=== PATIENT | male | born 1935 | race Caucasian/White ===

== ENCOUNTER 2018-05-05 21:12 | Inpatient (IN) | payer OTHER ==
[2018-05-05] MEDS ORDERED: ONDANSETRON 4 MG INJ IV (23:00)
[2018-05-05] MEDS ORDERED: ALBUTEROL/IPRATROPIUM (NEB) 3 ML AMP HHN (23:00)
[2018-05-05] MEDS: DEXTROSE 5%-0.45% NACL 1,000 ML IV (23:15)
[2018-05-05] MEDS ORDERED: DEXTROSE 50% 50 ML SYRINGE IV ×2 (23:30)
[2018-05-05] MEDS ORDERED: GLUCOSE GEL 15 GRAM TUBE PO ×2 (23:30)
[2018-05-05] MEDS ORDERED: GLUCOSE GEL 15 GRAM TUBE BUCCAL (23:30)
[2018-05-05] MEDS ORDERED: GLUCAGON 1 MG INJ IM (23:30)
[2018-05-06] MEDS: ACETAMINOPHEN 325 MG TAB PO (05:11)
[2018-05-06] MEDS: INSULIN ASPART [NOVOLOG] 3 ML PEN SC ×6 (05:39→20:38)
[2018-05-06 05:58] LABS: ADD MAN DIFF? NO
[2018-05-06 06:02] LABS: BASOPHILS % 0.5 % (0.0-2.0); EOSINOPHILS # 0.7 10^3/ul (0.0-0.5); HEMATOCRIT 37.4 % (42.0-52.0); HEMOGLOBIN 12.6 g/dl (14.0-18.0); LYMPHOCYTES # 0.7 10^3/ul (0.8-2.9); LYMPHOCYTES % 11.5 % (15.0-51.0); MEAN CORPUSCULAR HEMOGLOBIN 29.1 pg (29.0-33.0); MEAN CORPUSCULAR HGB CONC 33.7 g/dl (32.0-37.0); MEAN CORPUSCULAR VOLUME 86.4 fl (82.0-101.0); MEAN PLATELET VOLUME 9.2 fl (7.4-10.4); MONOCYTE # 0.6 10^3/ul (0.3-0.9); MONOCYTES % 10.7 % (0.0-11.0); NEUTROPHIL # 3.9 10^3/ul (1.6-7.5); PLATELET COUNT 304 10^3/UL (140-415); RED BLOOD COUNT 4.33 10^6/ul (4.70-6.10)
[2018-05-06 06:02] LABS: WHITE BLOOD COUNT 5.9 10^3/ul (4.8-10.8)
[2018-05-06 06:34] LABS: ALANINE AMINOTRANSFERASE 24 IU/L (13-69); ALBUMIN 2.8 g/dl (3.3-4.9); ALBUMIN/GLOBULIN RATIO 0.96; ALKALINE PHOSPHATASE 112 IU/L (42-121); ANION GAP 4 (8-16); ASPARTATE AMINO TRANSFERASE 45 IU/L (15-46); BILIRUBIN,INDIRECT 0.5 mg/dl (0-1.1); BILIRUBIN,TOTAL 0.5 mg/dl (0.2-1.3); BLOOD UREA NITROGEN 12 mg/dl (7-20); CALCIUM 8.3 mg/dl (8.4-10.2); CARBON DIOXIDE 27 mmol/L (21-31); CHLORIDE 106 mmol/L (97-110); CHOL/HDL RATIO 3.6 RATIO; CHOLESTEROL 132 mg/dl (100-200); CREATININE 0.71 mg/dl (0.61-1.24); GLUCOSE 100 mg/dl (70-220); HDL CHOLESTEROL 36 mg/dl (31-75); LDL CHOLESTEROL,CALCULATED 83 mg/dl; PHOSPHORUS 2.9 mg/dl (2.5-4.9); POTASSIUM 3.8 mmol/L (3.5-5.1); SODIUM 133 mmol/L (135-144); TOTAL PROTEIN 5.7 g/dl (6.1-8.1); TRIGLYCERIDES 67 mg/dl (0-149)
[2018-05-06] MEDS: SOD CHLORIDE 0.9% 1,000 ML IV ×2 (07:47→20:35)
[2018-05-06] MEDS: LEVOFLOXACIN 500MG/D5W (PMX) 100 ML IVPB (07:47)
[2018-05-06] MEDS: METHYLPREDNISOLONE 40 MG INJ IV ×2 (09:33→20:39)
[2018-05-06] MEDS: ASPIRIN (EC) 81 MG TAB PO (09:33)
[2018-05-06] MEDS: HEPARIN 5,000 UNIT/0.5 ML VIAL SC ×2 (09:35→20:40)
[2018-05-06] MEDS: DOCUSATE SODIUM 100 MG CAP PO (20:39)
[2018-05-06] MEDS: ATORVASTATIN 20 MG TAB PO (20:39)
[2018-05-07] MEDS: ACCU-CHEK XX (02:00)
[2018-05-07] MEDS: LEVOFLOXACIN 500MG/D5W (PMX) 100 ML IVPB (06:09)
[2018-05-07 07:40] LABS: HEMOGLOBIN A1C 6.2 % (0-5.9)
[2018-05-07] MEDS: METHYLPREDNISOLONE 40 MG INJ IV (08:16)
[2018-05-07] MEDS: ASPIRIN (EC) 81 MG TAB PO (08:19)
[2018-05-07] MEDS: DOCUSATE SODIUM 100 MG CAP PO ×2 (08:19→22:33)
[2018-05-07] MEDS: HEPARIN 5,000 UNIT/0.5 ML VIAL SC ×2 (08:22→22:35)
[2018-05-07] MEDS: INSULIN ASPART [NOVOLOG] 3 ML PEN SC ×2 (08:22→12:22)
[2018-05-07] MEDS: ATORVASTATIN 20 MG TAB PO (22:34)
[2018-05-08] MEDS: ACCU-CHEK XX (01:55)
[2018-05-08] MEDS: LEVOFLOXACIN 750 MG TABLET PO (05:57)
[2018-05-08] MEDS: DOCUSATE SODIUM 100 MG CAP PO (10:54)
[2018-05-08] MEDS: ASPIRIN (EC) 81 MG TAB PO (10:54)
[2018-05-08] MEDS: HEPARIN 5,000 UNIT/0.5 ML VIAL SC (11:03)
[2018-05-08 15:08] LABS: FREE T4 (FREE THYROXINE) 0.83 ng/dl (0.85-1.93)
== END 2018-05-08 16:35 | disposition home or self-care (01) | DRG 194 ==
LOC: MS2 21:12
PROVIDERS: Hospitalist
DX: J18.9 Pneumonia, unspecified organism (principal); E87.1 Hypo-osmolality and hyponatremia; F03.90 Unspecified dementia, unspecified severity, without behavioral disturbance, psychotic disturbance, mood disturbance, and anxiety; E86.0 Dehydration; C61 Malignant neoplasm of prostate; M19.032 Primary osteoarthritis, left wrist; M19.031 Primary osteoarthritis, right wrist; M17.0 Bilateral primary osteoarthritis of knee; R73.03 Prediabetes
CPT/HCPCS: 71045; 71250; 80053; 80061; 82962; 83036; 83735; 84100; 84439; 84443; 85025; 92610; 93306; 97116; 97163; 97530

== ENCOUNTER 2018-05-11 14:02 | Outpatient (CLI) | payer OTHER | END 2018-05-11 16:02 | disposition home or self-care (01) | LOC: DCC 14:02 | DX: J18.9 Pneumonia, unspecified organism (principal); M19.90 Unspecified osteoarthritis, unspecified site; F03.90 Unspecified dementia, unspecified severity, without behavioral disturbance, psychotic disturbance, mood disturbance, and anxiety; G20 Parkinson's disease | CPT/HCPCS: G0463 ==

== ENCOUNTER 2018-05-22 14:43 | Outpatient (CLI) | payer OTHER | END 2018-05-22 16:27 | disposition home or self-care (01) | LOC: DCC 14:43 | DX: R60.9 Edema, unspecified (principal); G20 Parkinson's disease; F03.90 Unspecified dementia, unspecified severity, without behavioral disturbance, psychotic disturbance, mood disturbance, and anxiety; M06.9 Rheumatoid arthritis, unspecified | CPT/HCPCS: G0463 ==